=== PATIENT | male | born 1930 ===

== ENCOUNTER 2019-07-21 14:05 | Emergency (ER) | payer OTHER ==
[~2019-07-21] VITALS: Ht 172.7 cm; Wt 79.8 kg
[~2019-07-21 14:05] MED LIST: CARVEDILOL25 MG; COREG CR20 MG; HYDROCHLOROTHIA25 MG; ISOSORBIDE DINI30 MG; PRAVASTATIN SOD20 MG; TOPROL XL25 M1
== END 2019-07-21 17:24 | disposition home or self-care (01) ==
LOC: ER 14:05
DX: S80.01XA Contusion of right knee, initial encounter (principal); W18.39XA Other fall on same level, initial encounter; Y93.89 Activity, other specified; Y92.098 Other place in other non-institutional residence as the place of occurrence of the external cause; Y99.8 Other external cause status